=== PATIENT | female | born 1960 | race Caucasian/White ===

== ENCOUNTER → 2020-06-21 10:44 | Outpatient (CLI) | payer MEDICARE, SELFPAY ==
--- NOTE | 2020-06-21 11:16 | DI.MG.S_ITS ---
Patient Name: DELMIS BURNS date: 1960 Sex: F Attending Physician: Luis Alberto Indications: Date: 06/21/2020 10:59 At the request of: DESIREE COVARRUBIAS Procedure: MM screening mammo BI BILATERAL DIGITAL SCREENING MAMMOGRAM 3D/2D WITH CAD: 06/21/2020 CLINICAL: Routine screening. Family history of breast cancer. Comparison is made to exams dated: 03/17/2012 mammogram, 08/09/2014 mammogram, and 04/24/2019 mammogram - outside location. The tissue of both breasts is heterogeneously dense. This may lower the sensitivity of mammography. Current study was also evaluated with a Computer Aided Detection (CAD) system. No significant masses, calcifications, or other findings are seen in either breast. There has been no significant interval change. IMPRESSION: NEGATIVE There is no mammographic evidence of malignancy. A 1 year screening mammogram is recommended. This exam was interpreted at Station ID: [id number]. NOTE: For mammograms, a report in lay terms will be sent to the patient. Approximately 15% of breast malignancies will not be visualized mammographically. In the management of a palpable breast mass, a negative mammogram must not discourage biopsy of a clinically suspicious lesion. Electronically Signed By: Willy davis/miguel:06/23/2020 08:13:11 letter sent: Normal Exam ACR BI-RADS Category 1: Negative 3341F
== END ==
PROVIDERS: PCP Family Medicine; Referring Provider Family Medicine; Visit Provider Family Medicine
DX: Z12.31 Encounter for screening mammogram for malignant neoplasm of breast (principal)
CPT/HCPCS: 77063; 77067

== ENCOUNTER → 2020-08-08 12:46 | Outpatient (CLI) | payer OTHER, SELFPAY | PROVIDERS: PCP Family Medicine; Referring Provider Family Medicine; Visit Provider Family Medicine | DX: Z13.820 Encounter for screening for osteoporosis (principal); Z78.0 Asymptomatic menopausal state; E07.9 Disorder of thyroid, unspecified; Z87.891 Personal history of nicotine dependence | CPT/HCPCS: 77080 ==

== ENCOUNTER → 2021-02-10 10:53 | Outpatient (CLI) | payer OTHER, SELFPAY ==
--- NOTE | 2021-02-10 10:58 | DI.RAD.S_ITS ---
PROCEDURE: XR HAND RT MIN 3V INDICATIONS: swollen TECHNIQUE: 3 views of the hand(s) acquired. COMPARISON: [facility], CR, XR WRIST RT MIN 3V, 02/10/2021, 10:58. FINDINGS: Bones: There is a comminuted, minimally displaced fracture of the 5th proximal phalangeal base with intra-articular involvement. Carpal bones are normally aligned. No suspicious bony lesions. There is an ossicle adjacent to the ulnar styloid. Soft tissues: No suspicious soft tissue calcifications. Soft tissue swelling at the base of the 5th finger. IMPRESSION: 1. Comminuted, minimally displaced intra-articular fracture of the 5th proximal phalangeal base. 2. An ossicle adjacent to the ulnar styloid, most likely an accessory ossicle. Dictated by: Luisito Worrell M.D. on 02/10/2021 at 11:36 Approved by: Luisito Worrell M.D. on 02/10/2021 at 11:41
--- NOTE | 2021-02-10 10:58 | DI.RAD.S_ITS ---
PROCEDURE: XR WRIST RT MIN 3V INDICATIONS: swelling TECHNIQUE: 4 views of the wrist were acquired. COMPARISON: [facility], CR, XR HAND RT MIN 3V, 02/10/2021, 10:58. FINDINGS: Bones: No fractures or dislocations. No suspicious bony lesions. There is an accessory ossicle adjacent to the ulnar styloid. The ulnar styloid appears intact. Scaphoid view: Scaphoid appears intact. Soft tissues: No suspicious soft tissue calcifications. IMPRESSION: No acute fracture or dislocation. Dictated by: Luisito Worrell M.D. on 02/10/2021 at 11:42 Approved by: Luisito Worrell M.D. on 02/10/2021 at 11:42
== END ==
PROVIDERS: PCP Family Medicine; Referring Provider Physician Assistant; Visit Provider Physician Assistant
DX: S62.616A Displaced fracture of proximal phalanx of right little finger, initial encounter for closed fracture (principal); R60.9 Edema, unspecified; Z91.81 History of falling
CPT/HCPCS: 73110; 73130; 93005

== ENCOUNTER → 2021-07-07 12:18 | Outpatient (CLI) | payer OTHER, SELFPAY ==
--- NOTE | 2021-07-07 12:20 | DI.MG.S_ITS ---
BILATERAL DIGITAL SCREENING MAMMOGRAM 3D/2D WITH CAD: 07/07/2021 CLINICAL: Routine screening. Family history of breast cancer. Comparison is made to exams dated: 06/21/2020 mammogram - [facility], 04/24/2019 mammogram, and 08/09/2014 mammogram - outside location. The tissue of both breasts is heterogeneously dense. This may lower the sensitivity of mammography. Current study was also evaluated with a Computer Aided Detection (CAD) system. No significant masses, calcifications, or other findings are seen in either breast. There has been no significant interval change. IMPRESSION: NEGATIVE There is no mammographic evidence of malignancy. A 1 year screening mammogram is recommended. This exam was interpreted at Station ID: [id number]. NOTE: For mammograms, a report in lay terms will be sent to the patient. Approximately 15% of breast malignancies will not be visualized mammographically. In the management of a palpable breast mass, a negative mammogram must not discourage biopsy of a clinically suspicious lesion. Electronically Signed By: Morris barraza/miguel:07/07/2021 13:29:30 letter sent: Normal Exam ACR BI-RADS Category 1: Negative 3341F
== END ==
PROVIDERS: PCP Family Medicine; Referring Provider Family Medicine; Visit Provider Family Medicine
DX: Z12.31 Encounter for screening mammogram for malignant neoplasm of breast (principal); Z80.3 Family history of malignant neoplasm of breast
CPT/HCPCS: 77063; 77067

== ENCOUNTER 2025-07-21 09:43 | Emergency (ER) | payer MEDICARE, OTHER, SELFPAY ==
[2025-07-21 09:51] VITALS: BP 152/72; PULSE 77; RESP 16; TEMP 36.1; O2SAT 99; BMI 31.4
--- OUTSIDE RECORDS SUMMARY | 2025-07-21 09:57 | XMS_ITS | Clinical Summary ---
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
--- NOTE | 2025-07-21 09:59 | ED_ITS ---
HPI - General Adult General Chief complaint: Back Pain/Injury Stated complaint: Poss kidney stone; pain LT lower back Time Seen by Provider: 07/21/25 09:47 History of Present Illness HPI narrative: 64-year-old female history of dyslipidemia hypertension hypothyroidism and history of kidney stone presents with left-sided flank pain ongoing for the last 5 days unrelieved with Tylenol. Patient denies nausea, vomiting, diarrhea, rectal pain, constipation, chest pain, shortness of breath, cough, fever, chills, body aches, pain down the legs or gait instability. Patient reports feels similar to kidney stones but slightly different. Other than what is stated 14 point review of system is negative. Related Data Allergies Allergy/AdvReac Type Severity Reaction Status Date / Time codeine (From [employer] with Allergy Unknown Verified 07/21/25 09:56 Codeine) NSAIDS (Non-Steroidal Allergy Unknown Verified 07/21/25 09:56 Anti-Inflamma bupropion (From Wellbutrin) Allergy Verified 07/21/25 09:56 Review of Systems Review of Systems ROS Unobtainable: All systems reviewed & are unremarkable except as noted in HPI and below Exam Narrative Exam Narrative: GENERAL: [81] year old patient appears stated age. Well-developed patient, in mild distress. HEAD: Atraumatic. Normocephalic. EYES: Pupils equal round and reactive. Extraocular motions intact. No scleral icterus. No injection or drainage. ENT: Nose without bleeding, purulent drainage. Throat without erythema, tonsillar hypertrophy or exudate. Airway patent. NECK: Trachea midline. Non tender CARDIOVASCULAR: Regular rate and rhythm without murmurs, gallops, or rubs. RESPIRATORY: Clear to auscultation. Breath sounds equal bilaterally. No wheezes, rales, or rhonchi. GASTROINTESTINAL: Abdomen soft, non-tender, nondistended. EXTREMITIES: No edema or joint tenderness. BACK: Nontender without deformity or crepitance. No flank tenderness. NEURO: AOx3. SKIN: No rash or erythema of visible areas Course Orders Ordered: ED Orders 07/21/25 09:58 CT abdomen pelvis w con Stat Complete Blood Count AUTO DIFF Stat Comprehensive Metabolic Panel Stat Lipase Stat EKG-12 Lead Stat Morphine Sulfate (Morphine 4 Mg/Ml Inj) 4 mg IV NOW ONE Stop: 07/21/25 10:00 Ondansetron HCl (Ondansetron 4 Mg/2 Ml Inj) 4 mg IV NOW PRN PRN Reason: Nausea And Vomiting Ondansetron HCl (Ondansetron 4 Mg Odt) 4 mg PO NOW PRN PRN Reason: Nausea And Vomiting Medical Decision Making Imaging Data CT scan - abdomen/pelvis: Radiologist's Impression: [address] [address] [address] Scan Report Signed Patient: Shreya Shine MR#: [id number] : 1960 Acct:[id number] Age/Sex: 64 / F Date of Service: 07/21/25 Loc: ED Accession Number: [id number] Procedure: CT abdomen pelvis w con Ordering Provider: Keegan Monroy D.O. PROCEDURE: CT ABDOMEN PELVIS W CON INDICATIONS: L side pain/ hx of kidney stone TECHNIQUE: After the administration of intravenous contrast, axial sections acquired from the lung bases to the pubic symphysis. Coronal and sagittal reformats were performed. For radiation dose reduction, the following was used: automated exposure control, adjustment of mA and/or kV according to patient size. COMPARISON: None. FINDINGS: Image quality: Diagnostic. Lower Chest: No significant findings. ABDOMEN: Liver: No solid mass. Hepatic steatosis Gallbladder: No radiopaque gallstones or wall thickening. Biliary ducts: No biliary dilation. Pancreas: No ductal dilation. Spleen: Size is within normal limits. Adrenal Glands: No adrenal nodules. Kidneys and Ureters: No hydronephrosis. No solid mass. No complex renal cystic lesion which requires follow up. Left interpolar nonobstructive 1 cm stone, 786 Hounsfield units, (series 2, image 52). No right nephrolithiasis. Stomach and Bowel: Normal colonic caliber, without significant wall thickening. Normal appendix. Acute diverticulitis of the proximal descending colon adjacent to the splenic flexure. Peritoneum: No abnormal intraperitoneal fluid. No free air. Ventral Wall: No significant ventral hernia. Abdominal Nodes: No retroperitoneal or mesenteric adenopathy by size criteria. Vessels: Aorta and inferior vena cava are normal in size. PELVIS: Pelvic Organs: Unremarkable. Bladder: No bladder wall thickening, accounting for underdistention. Pelvic Nodes: No enlarged lymph nodes. Miscellaneous: No inguinal hernias are seen. Bones: No aggressive osseous abnormality. Multilevel degenerative disc disease in the inferior lumbar spine. IMPRESSION: Acute diverticulitis of the proximal descending colon. No abscess. Nonobstructive left intrarenal nephrolithiasis measures up to 1 cm. No left hydronephrosis. Dictated by: Virgilio Mcnamara M.D. on 07/21/2025 at 10:58 Approved by: Virgilio Mcnamara M.D. on 07/21/2025 at 11:01 [facility] Narrative Medical decision making narrative: All lab work, vital signs, nurse triage note, medication list, previous ER visits, and all imaging studies reviewed. CT scan showed acute diverticulitis of the proximal descending colon no abscess. Nonobstructive left intrarenal left nephrolithiasis measuring up to 1 cm no left hydronephrosis. WBC 7.3 hemoglobin 14 platelet 344 sodium 135 as an 4.3 chloride 100 CO2 29 BUN 14 creatinine 0.77 glucose 88 lipase 88. Patient given Cipro Flagyl here and will be discharged on Cipro Flagyl and [place]. Differential diagnosis constipation diverticulitis kidney stone kidney infection. Discharge Plan Departure Patient Disposition: Home Clinical Impression: Acute diverticulitis Instructions: DI for Diverticulitis Activity Restrictions/Additional Instructions: Return with new or worsening symptoms. Keep hydrated. Take medicines as directed. Clear liquid advance as tolerated. Follow up with PCP in 1-2 weeks if no improvement in symptoms. Referrals: Keke Eng MD [Primary Care Provider, Family Practice] Stand Alone Forms: Patient Portal/API
[2025-07-21] MEDS: ONDANSETRON 4 MG/2 ML INJ IV (10:18)
[2025-07-21] MEDS: MORPHINE 4 MG/ML INJ IV (10:18)
[2025-07-21 10:27] LABS: Ictotest Urine Negative (Negative)
[2025-07-21 10:31] LABS: Add Manual Diff / Slide Review NO; Hematocrit 41.3 % (36-46); Hemoglobin 14.0 g/dL (12.0-16.0); Lymphocytes Absolute Auto 2700 /uL (1100-4500); Mean Corpuscular HGB Conc 33.9 % (30-36); Mean Corpuscular Hemoglobin 32.0 PG (26-34); Mean Corpuscular Volume 94.5 fL (80-100); Platelet Count 344 X10^3/uL (150-400)
[2025-07-21 10:34] LABS: Alanine Aminotransferase 35 IU/L (<35); Albumin 4.5 g/dL (3.5-5.0); Albumin Globulin Ratio 1.4 (1.0-2.8); Alkaline Phosphatase 90 U/L (38-126); Blood Urea Nitrogen 14 mg/dL (7-17); Calcium 9.0 mg/dL (8.4-10.2); Carbon Dioxide 29 mmol/L (22-32); Chloride 100 mmol/L (98-107); Estimated Glomerular Filt Rate > 60 mL/min (>60); Globulin 3.2 g/dL (1.7-4.1); Glucose 88 mg/dL (70-99); HEMOLYSIS < 15 (0-50); Lipase 88 U/L (23-300); Potassium 4.3 mmol/L (3.4-5.1); Sodium 135 mmol/L (137-145); Total Protein 7.7 g/dL (6.3-8.2)
[2025-07-21] MEDS: CIPROFLOXACIN 250 MG TABLET 500 MG PO (11:20)
[2025-07-21 11:24] VITALS: BP 127/60; PULSE 75; RESP 16; TEMP 36.4; O2SAT 98
== END 2025-07-21 11:39 | disposition home or self-care (01) ==
PROVIDERS: Emergency Provider Family Medicine; PCP Family Medicine
DX: K57.32 Diverticulitis of large intestine without perforation or abscess without bleeding (principal); M54.50 Low back pain, unspecified
CPT/HCPCS: 36415; 74177; 80053; 81003; 83690; 85025; 96374; 96375; 99284; J2272; J2405; Q9967

== ENCOUNTER 2025-07-24 18:01 | Emergency (ER) | payer MEDICARE, OTHER, SELFPAY ==
[2025-07-24 18:06] VITALS: BP 161/109; PULSE 89; RESP 16; TEMP 36.3; O2SAT 97; BMI 31.4
--- NOTE | 2025-07-24 18:21 | EKG_ITS ---
[address] [address] Test Date: 2025-07-24 Pat Name: Shreya Shine Department: Room: Gender: Female Manager Creative: : 1960 Requested By: Order Number: [id number] Reading MD: Keegan Vincent MD Measurements Intervals [place] Rate: 76 P: 47 OK: 164 QRS: 35 QRSD: 72 T: 55 QT: 408 QTc: 459 Interpretive Statements Normal sinus rhythm Cannot rule out Anterior infarct , age undetermined Electronically Signed On 07-26-2025 8:11:59 PST by Keegan Vincent MD
[2025-07-24 18:37] LABS: Add Manual Diff / Slide Review NO; Hematocrit 42.2 % (36-46); Hemoglobin 14.8 g/dL (12.0-16.0); Lymphocytes Absolute Auto 800 /uL (1100-4500); Mean Corpuscular HGB Conc 35.1 % (30-36); Mean Corpuscular Hemoglobin 32.6 PG (26-34); Mean Corpuscular Volume 93.0 fL (80-100); Platelet Count 306 X10^3/uL (150-400)
[2025-07-24 18:48] LABS: Alanine Aminotransferase 62 IU/L (<35); Albumin 4.8 g/dL (3.5-5.0); Albumin Globulin Ratio 1.5 (1.0-2.8); Alkaline Phosphatase 83 U/L (38-126); Blood Urea Nitrogen 8 mg/dL (7-17); Calcium 9.7 mg/dL (8.4-10.2); Carbon Dioxide 23 mmol/L (22-32); Chloride 101 mmol/L (98-107); Estimated Glomerular Filt Rate > 60 mL/min (>60); Globulin 3.3 g/dL (1.7-4.1); Glucose 119 mg/dL (70-99); HEMOLYSIS < 15 (0-50); Lipase 42 U/L (23-300); Potassium 4.0 mmol/L (3.4-5.1); Sodium 134 mmol/L (137-145); Total Protein 8.1 g/dL (6.3-8.2)
[2025-07-24] MEDS: ONDANSETRON 4 MG/2 ML INJ IV (19:08)
[2025-07-24 19:19] LABS: Appearance Urine UA CLEAR; Bilirubin Urine UA NEGATIVE (NEGATIVE); Color Urine UA YELLOW; Glucose Urine UA NEGATIVE (Negative); Ketones Urine UA 1+ (NEGATIVE); Leukocyte Esterase Urine UA NEGATIVE (NEGATIVE); Nitrite Urine UA NEGATIVE (Negative); Occult Blood Urine UA NEGATIVE (Negative); Protein Urine UA NEGATIVE (Negative); Specific Gravity Urine UA 1.010 (1.000-1.035); Urobilinogen Urine UA 0.2 E.U./dL (0.2)
[2025-07-24 19:22] LABS: pH Urine UA 6.5 (4.5-8.0)
[2025-07-24 19:25] VITALS: BP 164/78; PULSE 84; O2SAT 93
--- NOTE | 2025-07-24 20:02 | DI.CT.S_ITS ---
PROCEDURE: CT ABDOMEN PELVIS W CON INDICATIONS: diverticulitis 4 days ago, worsening pain. r/o abscess, etc TECHNIQUE: After the administration of intravenous contrast, axial sections acquired from the lung bases to the pubic symphysis. Coronal and sagittal reformats were performed. For radiation dose reduction, the following was used: automated exposure control, adjustment of mA and/or kV according to patient size. COMPARISON: [facility], CT, CT ABDOMEN PELVIS W CON, 07/21/2025, 10:39. FINDINGS: Image quality: Diagnostic Lower chest: Basal atelectasis. Heart size is at the upper limit of normal. Aortic annulus calcifications are seen. Liver: Unremarkable Gallbladder and biliary system: Unremarkable, nondilated Pancreas: No ductal dilation Spleen: Subcentimeter lesion at the upper pole, too small to characterize, probably a cyst or hemangioma. Adrenals: No discrete nodules Kidneys: Conglomerate of stones at the left lower pole with focal scarring again seen. No solid enhancing renal mass. No hydronephrosis. Vessels and lymph nodes: Main portal vein appears patent. No abdominal aortic aneurysm. There are mild aortoiliac atherosclerotic calcifications. No lymphadenopathy identified by size criteria Bowel and peritoneum: No bowel obstruction. Diffuse colonic diverticula. Mild focal edema around a diverticulum in the proximal descending colon, as before. No abscess is identified. Nondilated appendix. No drainable abscess or ascites. No definite pneumoperitoneum Body wall: Small fat containing umbilical hernia. Mild rectus diastasis. Pelvis: Bladder is unremarkable. Suspect 2.4 x 2.7 cm right ovarian cyst is again seen. Bones: No aggressive appearing osseous abnormality. There are degenerative osseous changes. IMPRESSION: Mild inflammation at the proximal descending colon representing uncomplicated diverticulitis, similar to prior. Diverticulosis seen elsewhere. No abscess. No significant free air identified. Nondilated appendix. No bowel obstruction. Probable 2.4 x 2.7 cm right ovarian cyst. Other findings above. Dictated by: Jared Saldivar M.D. on 07/24/2025 at 20:35 Approved by: Jared Saldivar M.D. on 07/24/2025 at 20:41
[2025-07-24] MEDS: ACETAMINOPHEN 325 MG TABLET 975 MG PO (21:46)
[2025-07-24 21:56] VITALS: BP 158/76; PULSE 80; RESP 18; TEMP 36.7; O2SAT 95
== END 2025-07-24 21:59 | disposition home or self-care (01) ==
PROVIDERS: Emergency Provider Student in an Organized Health Care Education/Training Program; PCP Family Medicine
DX: K57.92 Diverticulitis of intestine, part unspecified, without perforation or abscess without bleeding (principal); M54.50 Low back pain, unspecified; I10 Essential (primary) hypertension
CPT/HCPCS: 36415; 74177; 80053; 81001; 83690; 85025; 93005; 96374; 96375; 99284; J1171; J2405; Q9967